=== PATIENT | female | born 1985 | race Caucasian/White ===

== ENCOUNTER 2017-11-29 19:55 | Emergency (ER) | payer MEDICAID, BC, OTHER ==
[2017-11-29 22:01] LABS: URINE BLOOD (Dip) POC Trace-intact (NEGATIVE); URINE GLUCOSE (Dip) POC Negative (NEGATIVE); URINE KETONES (Dip) POC Negative (NEGATIVE); URINE LEUKOCYTE EST (Dip) POC Trace (NEGATIVE); URINE NITRITE (Dip) POC Positive (NEGATIVE); URINE TOTAL PROTEIN POC Negative (NEGATIVE)
[2017-11-29] MEDS: LORAZEPAM 1 MG TAB PO (22:05)
[2017-11-29] MEDS: KETOROLAC 60 MG INJ IM (22:11)
== END 2017-11-29 22:35 | disposition home or self-care (01) ==
LOC: FTE 22:35
DX: N30.90 Cystitis, unspecified without hematuria (principal); R51 Headache
CPT/HCPCS: 81003; 81025; 82962; 96372; 99284-25